=== PATIENT | male | born 1980 | race Two or more races ===

== ENCOUNTER 2018-11-02 00:19 | Emergency (ER) | payer SELFPAY ==
[~2018-11-02] VITALS: Ht 167.6 cm; Wt 77.1 kg
[2018-11-02 00:20] VITALS: BP 118/75
--- NOTE | 2018-11-02 00:58 | PHYS DOC ---
Past Medical History Past Medical History: No Pertinent History Past Surgical History: Other Additional Past Surgical Histo: "RIGHT FOOT SURGERY" Alcohol Use: None Drug Use: None Adult General Chief Complaint Chief Complaint: BACK PAIN - NO INJURY HPI HPI Patient is 38 yo male who presents with complaint of 7/10 back pain. Patient reports he has had back pain for 3 months and thought it would go away, however the pain has continued to worsen. He reports he has been able to manage the pain with tylenol although tonight the pain is so severe that he can't sleep. He says the pain is in the middle of his lower back and on the right side. The pain is worse with movement, particularly bending over. 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 He has never had any back surgery. Denies bowel/bladder incontinence. Denies pmh of kidney stones but admits he does not see a doctor regularly. He denies pain or burning with urination, blood in his urine, or foul smell. Denies any other associated symptoms, including shortness of breath and chest pain. Denies rash. Denies fever/chills. Review of Systems Review of Systems Constitutional: Denies fever or chills [] Respiratory: Denies cough or shortness of breath [] Cardiovascular: Denies chest pain or palpitations GI: Denies abdominal pain, nausea, vomiting, or diarrhea [] : Denies dysuria or hematuria [] Musculoskeletal: Denies joint pain. Admits mid to lower back and right sided back pain. Integument: Denies rash or skin lesions [] Neurologic: Denies headache, focal weakness or sensory changes [] Complete systems were reviewed and found to be within normal limits, except as documented in this note. Current Medications Current Medications Current Medications Medications (Trade) Dose Ordered Sig/[facility] Start Time Stop Time Status Last Admin Dose Admin Dexamethasone (Decadron) 10 mg 1X ONCE 11/02/18 01:00 11/02/18 01:05 DC 11/02/18 01:00 10 MG Ketorolac Tromethamine (Toradol 30mg Vial) 30 mg 1X ONCE 11/02/18 01:00 11/02/18 01:05 DC 11/02/18 01:00 30 MG Allergies Allergies Allergies Coded Allergies Type Severity Reaction Last Updated Verified No Known Drug Allergies 11/02/18 No Physical Exam Physical Exam Constitutional: Well developed, well nourished, no acute distress, non-toxic appearance. [] HENT: Normocephalic, atraumatic, no oral exudates, nose normal. [] Eyes: EOMI, conjunctiva normal, no discharge. [] Neck: Normal range of motion, no tenderness, supple Cardiovascular:Heart rate regular rhythm, no murmur [] Lungs & Thorax: Bilateral breath sounds clear to auscultation [] Abdomen: Soft, no tenderness, no masses, no pulsatile masses. [] Skin: Warm, dry, no erythema, no rash. [] Back: Tender to palpation mid to lower back. Tight R sided paraspinal muscles. No palpable deformities, step offs, or swelling. No discoloration. Negative CVA tenderness bilaterally. Extremities: No tenderness, no cyanosis, no clubbing, ROM intact, no edema. [] Neurologic: Alert and oriented X 3, normal motor function, normal sensory function, no focal deficits noted. Lower extremity dermatomes intact bilaterally. Lower extremity muscle strength 5/5. Psychologic: Affect normal, judgement normal, mood normal. [] Current Patient Data Vital Signs Vital Signs Date Time Temp Pulse Resp B/P (MAP) Pulse Ox O2 Delivery O2 Flow Rate FiO2 11/02/18 00:20 97.8 64 14 118/75 (89) 97 Room Air 97.8 EKG EKG [] Radiology/Procedures Radiology/Procedures [] Course & Med Decision Making Course & Med Decision Making Patient is 38 yo male who cleans houses for a living presenting with complaint of gradual onset, worsening low back and R sided pain. Patient does not remember event or trauma leading to onset of pain, but reports the pain has worsened to where he can't rest. He has previously managed the pain with tylenol but it no longer helps. On physical exam patient's vitals are WNL, muscle strength 5/5, and right paraspinal low back are tender to palpation. Patient able to ambulate. The remainder of physical exam is unremarkable. D/t the duration of the pain, the gradual onset, and the absence of urinary symptoms or hx of kidney stones, pain likely musculoskeletal in origin although we are unable to r/o intervertebral disc or nerve pathology. Discussed with patient and ( translated for patient) that pain likely d/t musculature and the imaging capabilities that we have in ED are not conducive to assessing soft tissue. Patient (via ) voiced concern that pain could be d/t kidneys. Discussed that pain from kidney stones would likely not last for 3 months and that patient would likely have additional urinary symptoms. Patient treated in ED with toradol and dexamethasone. Discussed with and patient the plan to discharge patient home with prednisone, orphenadrine, and lidocaine patches. Also discussed the importance of following up with a primary care provider, and gave patient literature (in Kiswahili) of primary care providers and clinics. and patient voiced understanding and agreement with plan. Dragon Disclaimer Dragon Disclaimer This electronic medical record was generated, in whole or in part, using a voice recognition dictation system. Departure Departure Impression: Primary Impression: Low back pain Disposition: HOME, SELF-CARE Condition: STABLE Referrals: GODWIN HIDALGO MD Patient Instructions: Back Pain, Adult, Wkoe-po-Xcic Scripts Lidocaine (Lidocaine) 1 Each Adh..patch 1 EACH TP Q12HR PRN for PAIN, #6 PATCH Wear patch at site of pain. Keep each patch on for 12 hours then removal and leave off for next 12 hours before applying new patch. Prov: MIGUE PATEL DO 11/02/18 Orphenadrine Citrate (ORPHENADRINE CITRATE) 100 Mg Tablet.er 100 MG PO BID PRN for MUSCLE PAIN, #14 Prov: MIGUE PATEL DO 11/02/18 Prednisone (PREDNISONE) 20 Mg Tablet 2 TAB PO DAILY, #8 TAB Start tomorrow 11/03/18 Prov: MIGUE PATEL DO 11/02/18 Problem Qualifiers Primary Impression: Low back pain Chronicity: acute Back pain laterality: bilateral Sciatica presence: without sciatica Qualified Codes: M54.5 - Low back pain MIGUE PATEL DO Nov 02, 2018 00:58
[2018-11-02] MEDS ORDERED: KETOROLAC 30 MG/ML VIAL. IM ONE (01:00)
[2018-11-02] MEDS ORDERED: DEXAMETHASONE 4 MG TABLET PO ONE (01:00)
[2018-11-02] MEDS ORDERED: ORPH100T PO (01:02)
[2018-11-02] MEDS ORDERED: LIDO700A39 TP (01:02)
[2018-11-02] MEDS ORDERED: PRED20TA PO (01:02)
== END 2018-11-02 01:05 | disposition home or self-care (01) ==
LOC: ER 00:19
DX: M54.5 Low back pain (principal)
CPT/HCPCS: 96372; 99283; J1885; J8540